=== PATIENT | male | born 1965 | race Caucasian/White ===

== ENCOUNTER 2021-08-26 09:00 | Emergency (ER) | payer OTHER ==
[~2021-08-26] VITALS: Ht 167.6 cm; Wt 63.5 kg
--- NOTE | 2021-08-26 09:33 | NUR ---
COVID swab collected and sent to LAB.
--- NOTE | 2021-08-26 10:14 | NUR ---
Spoke to transfer worker, JOANA, for pt's possible placement.
--- NOTE | 2021-08-26 10:40 | NUR ---
Patient is resting comfortably in bed with eyes closed, NAD noted.
--- NOTE | 2021-08-26 11:30 | NUR ---
Spoke to Jessica [employer], she stated working on pt's placement, no result yet.
--- NOTE | 2021-08-26 15:17 | NUR ---
Discharge planning consult requested for homeless pt. with COVID-19 in the ED. Pt. is a 55-year-old male who was admitted to the ED due to testing positive for COVID-19. Per nursing staff, pt. tested positive for COVID-19 at a homeless detention and was brought into the ED. farm planner was called to find placement for the pt. farm planner called the [facility] ([phone]) and spoke with Steve. farm planner faxed clinicals to [facility] ([phone]). farm planner is waiting for placement clearance from the [facility]. [place] [address] ([phone]). Pt. will be alert and oriented x4 at discharge. Homeless waiver was signed and given to the patient and a copy was placed in the chart.
--- NOTE | 2021-08-26 16:43 | NUR ---
Patient discharged in stable condition. Written and verbal after care instructions given. Patient verbalizes understanding of instructions, pt refused to sign discharge paperwork. Stressed follow up or return to ER for worsening s/s.
[2021-08-26 16:44] VITALS: BP 140/74
== END 2021-08-26 16:51 | disposition home or self-care (01) ==
LOC: ER 09:01
DX: U07.1 COVID-19 (principal); Z59.02 Unsheltered homelessness; L40.9 Psoriasis, unspecified
CPT/HCPCS: A4663